=== PATIENT | male | born 1995 | race Caucasian/White ===

== ENCOUNTER 2017-10-09 12:19 | Emergency (ER) | payer OTHER ==
[2017-10-09 14:14] LABS: ABS Basophils 0 10^3/ul (0-0.2); ABS Eosinophils 0.1 10^3/ul (0-0.6); ABS Lymphocytes 1.2 10^3/ul (1.0-4.8); ABS Monocytes 0.5 10^3/ul (0-0.8); ABS Neutrophils 11.9 10^3/ul (1.5-7.7); ABS Nucleated RBC 0 10^3/ul; Eosinophil % 0.6 % (0-6); Hematocrit 42 % (42-52); Hemoglobin 14.2 g/dl (14.0-18.0); Lymphocyte % 8.7 % (25-47); Mean Corpuscular HGB Conc 34 g/dl (31-36); Mean Corpuscular Hemoglobin 28 pg (27-31); Mean Corpuscular Volume 84 fL (80-94); Mean Platelet Volume 8.9 um3 (7.4-10.4); Nucleated Red Blood Cells % 0; Platelet Count 192 10^3/ul (150-450); Red Blood Count 5.02 10^6/ul (4.0-5.4); Red Cell Distribution Width 13 % (10.5-15); White Blood Count 13.7 10^3/ul (3.5-10.8)
--- NOTE | 2017-10-09 14:24 | RAD ---
Indication: Head injury. CT of the brain was performed without IV contrast. Ventricular structures are midline. No midline shift is noted. The extraction spaces are unremarkable. There is no intracranial mass or hemorrhage. No high or low density lesions are identified. Mastoid air cells and paranasal sinuses are clear. The bony calvaria is grossly unremarkable. IMPRESSION: No intracranial mass or hemorrhage is noted.
--- NOTE | 2017-10-09 14:24 | RAD ---
HISTORY: Head trauma, facial trauma COMPARISONS: None TECHNIQUE: Multiple contiguous axial CT scans were obtained of the face without intravenous contrast, with coronal and sagittal multiplanar reformations. FINDINGS: BONES: There is no displaced fracture or dislocation. The orbital rim is intact. The zygomatic arch is intact. The pterygoid plates are intact. ORBITS: The globes are round. The optic nerves are symmetric. The extraocular musculature is normal. There is no post septal or intraconal inflammatory change. There is no retrobulbar hematoma. PARANASAL SINUSES: The paranasal sinuses are clear. BRAIN AND SOFT TISSUE: Unremarkable. OTHER: None. IMPRESSION: NO FACIAL FRACTURE
--- NOTE | 2017-10-09 14:30 | RAD ---
Indication: Head injury. CT of the cervical spine was obtained in the axial plane. Sagittal and coronal reconstructed images were obtained. Mastoid air cells and paranasal sinuses are unremarkable. The C1 ring is intact with no evidence of fracture. The vertebral bodies appear normal in height. No evidence of fracture is noted. Straightening of the normal lordosis is noted. No definite disc protrusion is identified. The lung apices are grossly unremarkable. IMPRESSION: No fracture of the cervical spine is noted.
[2017-10-09 14:32] LABS: EGFR Non-African American 101.1 (>60)
[2017-10-09] MEDS ORDERED: Tetan/Diph/Pertus SYR(Tdap)* 0.5 ML SYR(BOOSTRIX) use SYR IM ONE ×2 (14:52)
[2017-10-09 15:00] VITALS: BP 143/91
--- NOTE | 2017-10-09 15:00 | ED ---
Gilberto Lester Angela, scribed for Alan Green MD on 10/09/17 at 1337 . Head Injury - HPI Summary HPI Summary: This pt is a 22 y/o male presenting to [facility] c/o left sided facial swelling s/p injury today. 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 Denies LOC. Pt states the bar has a dull point and on the other side the bar is flat. He presents today with left sided facial pain, swelling, and laceration behind his left ear. Denies neck pain, chest pain , abd pain, visual changes, headache. His last tetanus vaccine is unknown. - History Of Current Complaint Chief Complaint: EDFacialInjury Stated Complaint: HEAD INJURY Hx Obtained From: Patient Mechanism Of Injury: Direct Blow Onset/Duration: Started Minutes Ago, Traumatic, Still Present Onset of Pain: Immediate Severity Currently: Severe Pain Intensity: 8 Pain Scale Used: 0-10 Numeric Location of Head Injury: Other: - left side of face Aggravating Factor(s): Other: - nothing Alleviating Factor(s): Other: - nothing Associated Signs And Symptoms: Swelling, Other: - NEG: LOC, headache, visual changes, neck pain - Allergies/Home Medications Allergies/Adverse Reactions: Allergies Allergy/AdvReac Type Severity Reaction Status Date / Time naproxen Allergy Rash Verified 10/09/17 12:35 Home Medications: Home Medications NK [No Home Medications Reported] 10/09/17 [History Confirmed 10/09/17] PMH/Surg Hx/FS Hx/Imm Hx Endocrine/Hematology History: Denies: Hx Diabetes Cardiovascular History: Denies: Hx Hypertension - Surgical History Surgery Procedure, Year, and Place: inguinal hernia repair Infectious Disease History: No Infectious Disease History: Denies: Traveled Outside the [place] in Last 30 Days - Family History Known Family History: Negative: Cardiac Disease, Hypertension - Social History Alcohol Use: None Substance Use Type: Reports: None Smoking Status (MU): Never Smoked Tobacco Review of Systems Negative: Fever Negative: Blurred Vision, Diplopia, Other - visual changes ENT: Other - left sided face pain Negative: Chest Pain Negative: Abdominal Pain Positive: Edema - left side of face Skin: Other - laceration behind left ear Negative: Headache All Other Systems Reviewed And Are Negative: Yes Physical Exam - Summary Physical Exam Summary: VITAL SIGNS: Reviewed. GENERAL: Patient is a well-developed and nourished male who is lying comfortable in the stretcher. Patient is not in any acute respiratory distress. HEAD AND FACE: Pt has an abrasion on the back of left ear. Pt has swelling on the left side of the face and around the jaw. No lip swelling. No tongue swelling. Airway is not compromised. EYES: PERRLA, EOMI x 2, No injected conjunctiva, no nystagmus. EARS: Hearing grossly intact. Ear canals and tympanic membranes are within normal limits. MOUTH: Oropharynx within normal limits. NECK: Supple, trachea is midline, no adenopathy, no JVD, no carotid bruit, no c- spine tenderness, neck with full ROM. CHEST: Symmetric, no tenderness at palpation LUNGS: Clear to auscultation bilaterally. No wheezing or crackles. CVS: Regular rate and rhythm, S1 and S2 present, no murmurs or gallops appreciated. ABDOMEN: Soft, non-tender. No signs of distention. No rebound no guarding, and no masses palpated. Bowel sounds are normal. EXTREMITIES: FROM in all major joints, no edema, no cyanosis or clubbing. NEURO: Alert and oriented x 3. No acute neurological deficits. Speech is normal and follows commands. SKIN: Dry and warm GCS: 15 Triage Information Reviewed: Yes Vital Signs On Initial Exam: Initial Vitals Temp Pulse Resp BP Pulse Ox 98 F 86 16 136/77 99 10/09/17 12:31 10/09/17 12:31 10/09/17 12:31 10/09/17 12:31 10/09/17 12:31 Vital Signs Reviewed: Yes Diagnostics - Vital Signs Vital Signs Temp Pulse Resp BP Pulse Ox 10/09/17 12:31 98 F 86 16 136/77 99 - Laboratory Lab Results: Lab Results 10/09/17 10/09/17 Range/Units 14:01 14:01 WBC 13.7 H (3.5-10.8) 10^3/ul RBC 5.02 (4.0-5.4) 10^6/ul Hgb 14.2 (14.0-18.0) g/dl Hct 42 (42-52) % MCV 84 (80-94) fL MCH 28 (27-31) pg MCHC 34 (31-36) g/dl RDW 13 (10.5-15) % Plt Count 192 (150-450) 10^3/ul MPV 8.9 (7.4-10.4) um3 Neut % (Auto) 86.5 H (38-83) % Lymph % (Auto) 8.7 L (25-47) % [place] % (Auto) 4.0 (0-7) % Eos % (Auto) 0.6 (0-6) % Baso % (Auto) 0.2 (0-2) % Absolute Neuts (auto) 11.9 H (1.5-7.7) 10^3/ul Absolute Lymphs (auto) 1.2 (1.0-4.8) 10^3/ul Absolute Monos (auto) 0.5 (0-0.8) 10^3/ul Absolute Eos (auto) 0.1 (0-0.6) 10^3/ul Absolute Basos (auto) 0 (0-0.2) 10^3/ul Absolute Nucleated RBC 0 10^3/ul Nucleated RBC % 0 Sodium 138 L (139-145) mmol/L Potassium 3.3 L (3.5-5.0) mmol/L Chloride 102 (101-111) mmol/L Carbon Dioxide 27 (22-32) mmol/L Anion Gap 9 (2-11) mmol/L BUN 12 (6-24) mg/dL Creatinine 0.95 (0.67-1.17) mg/dL Est GFR ( Amer) 130.0 (>60) Est GFR (Non-Af Amer) 101.1 (>60) BUN/Creatinine Ratio 12.6 (8-20) Glucose 107 H (70-100) mg/dL Calcium 9.6 (8.6-10.3) mg/dL Total Bilirubin 0.50 (0.2-1.0) mg/dL AST 47 H (13-39) U/L ALT 19 (7-52) U/L Alkaline Phosphatase 69 (34-104) U/L Total Protein 7.2 (6.4-8.9) g/dL Albumin 4.5 (3.2-5.2) g/dL Globulin 2.7 (2-4) g/dL Albumin/Globulin Ratio 1.7 (1-3) Result Diagrams: 10/09/17 14:01 10/09/17 14:01 Lab Statement: Any lab studies that have been ordered have been reviewed, and results considered in the medical decision making process. - CT Brain CT CT Interpretation: No Acute Changes - IMPRESSION: No intracranial mass or hemorrhage is noted. Dr. Green has reviewed this radiology report. CT Interpretation Completed By: Radiologist Cervical spine CT CT Interpretation: No Acute Changes - IMPRESSION: No fracture of the cervical spine is noted. Dr. Green has reviewed this radiology report. CT Interpretation Completed By: Radiologist Maxillofacial CT CT Interpretation: No Acute Changes - IMPRESSION: No facial fracture. Dr. Green has reviewed this radiology report. CT Interpretation Completed By: Radiologist Head Injury Course/Dx Assessment/Plan: This patient is a 22-year-old male who presents to the emergency room with a chief complaint of being hit in the left side of the face with a piece of metal tube. Patient denies any loss of consciousness. Physical exam the patient has and the small abrasion in the retroauricular area without any lacerations. She was given the tetanus booster. Blood work without any significant abnormality except for WBCs of 13.7 without bandemia. Potassium is 3.3 for which the patient was given potassium chloride. Head CT impression: No intracranial mass or hemorrhage is noted. Cervical spine CT impression: No fracture of the cervical spine. Musculofascial CT impression: No facial fracture. Therefore the patient was given ibuprofen and discharged home with follow-up with PCP. Patient is hematocrit stable alert and oriented 3. I discussed all the findings and test results with the patient. Patient was instructed to return to the emergency room immediately if any of the symptoms return or worsens. Plan of care was discussed with the patient and understands and agrees. All questions were answered at patient satisfaction. There were no further complaints or concerns. Lung exam before discharge: CTA B/L. Good air exchange. No wheezing or crackles heard. CVS: S1 and S2 present. No murmurs appreciated. Patient is alert and oriented x 3. Patient is hemodynamically stable. Patient will be discharged home with follow up PCP in the next 2-3 days - Diagnoses Differential Diagnosis/HQI/PQRI: Cerebral Contusion, Cervical Sprain, Concussion Without LOC, Contusion, Mandible Fracture, Nasal Fracture, Orbital Fracture, Skull Fracture, Zygomatic Fracture Provider Diagnoses: Facial contusion, Head contusion, Abrasion Discharge - Sign-Out/Discharge Documenting (check all that apply): Discharge/Admit/Transfer - Discharge - Discharge Plan Condition: Stable Disposition: HOME Patient Education Materials: Facial Contusion (ED), Contusion in Adults (ED) Referrals: [facility] [Outside] - 3 Days Additional Instructions: Please follow up with your primary care provider. RETURN TO THE ED FOR ANY NEW OR WORSENING SYMPTOMS. The documentation as recorded by the Gilberto shah Angela accurately reflects the service I personally performed and the decisions made by , Alan Green MD.
== END 2017-10-09 15:22 | disposition home or self-care (01) ==
LOC: ED 12:19
DX: S00.83XA Contusion of other part of head, initial encounter (principal); S00.03XA Contusion of scalp, initial encounter; S00.412A Abrasion of left ear, initial encounter; W22.8XXA Striking against or struck by other objects, initial encounter; Y93.H3 Activity, building and construction; Y92.9 Unspecified place or not applicable; Y99.0 Civilian activity done for income or pay; Z23 Encounter for immunization; Z88.6 Allergy status to analgesic agent
CPT/HCPCS: 36415; 70450; 70486; 72125; 80053; 85025; 90471; 90715; 99282